=== PATIENT | male | born 1965 | race Caucasian/White ===

== ENCOUNTER 2016-11-14 16:52 | Emergency (ER) | payer OTHER ==
[~2016-11-14] VITALS: Ht 182.9 cm; Wt 54.0 kg
--- NOTE | 2016-11-14 17:00 | ED.REPORT ---
HPI-Trauma Minor / Fall Date of Service Nov 14, 2016 ED Provider: Erin Portillo MD The pt is a 51 y/o male presenting to the ED due to an injury to the L knee. He was using his chainsaw 45 minutes ago and nicked himself but does not feel any pain. Nursing Notes Stated Complaint: LEFT KNEE LACERATION Chief Complaint: L knee laceration Nursing Notes Reviewed: Yes Allergies: Coded Allergies: No Known Allergies (Unverified , 11/14/16) General Time Seen by MD: 16:59 Chief Complaint Laceration (L knee ) Hx Obtained From: Patient Arrived By: Walk-in Onset Occurred: Just prior to arrival Symptom Duration: Since onset Context: Immunizations Unknown Recent Healthcare: No recent doctor visit, No recent hospitalization Similar Sx Previous: Yes Past Medical History Past Medical History None reported Past Surgical History None reported Smoking History Never Smoker Social History None reported Other Social History: Good social support, Ambulatory Status Independent Review of Systems L knee laceration Complete sys rev & neg: except as marked. Physical Exam Initial Vital Signs Vital Signs (First) Date Time Temp Pulse Resp B/P Pulse Ox O2 Delivery O2 Flow Rate FiO2 11/14/16 17:01 36.7 99 16 144/77 100 Room Air Initial VS: Reviewed Head / Eyes: Atraumatic, Normocephalic, PERRL Respiratory: No respiratory distress Cardiovascular: Intact distal pulses Neurologic: Alert, Oriented, Nonfocal Psychiatric: Mood/affect normal, Behavior normal, Normal thought content General/Constitutional: Awake, Alert Skin: Warm, Dry Full thickness 4 cm laceration to L knee that doesnt extend to underlying joint capsule does not cause any difficult walking neruo vascular intact Procedures Laceration Management Time: 17:40 Procedure Performed by: ED physician Consent / Setup / Site Prep: Informed consent provided, Consent from patient Location of Wound: L knee Wound Length: 4 cm Local Anesthesia: Lidocaine 1% Wound Preparation: Normal saline Irrigation: Copious Repair Skin: ___ O (4), Nylon # Sutures - Skin: 6 Suture Technique: Simple Post-Procedure / Complications: Antibiotic oint applied, Dressing applied, No complications, Condition improved, Tolerated procedure well, Patient stable Re-Eval/Medical Decision Re-Evaluation/Progress : Time of Eval: 17:22 Re-Evaluation/Progress Note: Performed laceration repair. F/U instructions and RTER warnings given. All questions addressed. Counseled Regarding: Diagnosis, Need for follow-up, When/why to return to ED Discharge & Departure Impression: Primary Impression: Laceration Disposition: Home Discharge Condition All VS Reviewed: Yes Condition: Stable Additional Instructions: Thanks for coming in today. There are easier ways to round... Your laceration did NOT extend into the tissues around the knee joint itself. You will need sutures out in 10 days (Friday 11/24). Keep the wound clean and dry. Avoid swiming or soaking in water until the stiches come out. A shower and allowing water to rinse over the surface is ok after the first 24 hours. If there seems to be more pain, swelling, redness, drainage or healing that doesn't seem to be going in the right direction, then please have the wound re- evaluated. You can come to the ER for our nurses to take out the stiches or ask Dr Conner's nurse to do that. You also got a tetanus shot today. Your arm will be sore, using it helps, as does ibuprofen. Referrals: Maxx Conner MD (PCP) Scribe Attestation Portions of this note were transcribed by Nick Zimmerman. I, Dr. Portillo personally performed the history, physical exam and medical decision-making; I reviewed and confirmed the accuracy of the information in the transcribed note. copies to: Maxx Conner MD, Shawna L MD Nov 14, 2016 17:00 Nick Zimmerman Nov 14, 2016 17:59 Erin Portillo MD Nov 14, 2016 17:00 Nick Zimmerman Nov 14, 2016 17:59
[2016-11-14 17:01] VITALS: BP 144/77; PULSE 99; RESP 16; O2SAT 100
[2016-11-14] MEDS ORDERED: TdaP Vaccine 0.5 mL Inj IM ONE (17:08)
== END 2016-11-14 17:57 | disposition home or self-care (01) ==
LOC: SED 16:52
DX: S81.011A Laceration without foreign body, right knee, initial encounter (principal); W29.3XXA Contact with powered garden and outdoor hand tools and machinery, initial encounter; Y93.89 Activity, other specified; Y92.89 Other specified places as the place of occurrence of the external cause; Y99.8 Other external cause status; Z23 Encounter for immunization